=== PATIENT | male | born 1960 | race African-American/Black ===

== ENCOUNTER 2018-02-10 12:17 | Emergency (ER) | payer MEDICAID, MEDICARE ==
[~2018-02-10] VITALS: Ht 188 cm; Wt 104.0 kg
[~2018-02-10 12:17] MED LIST: AMLO10TA80 PO
[2018-02-10 12:30] VITALS: BP 144/77
== END 2018-02-10 15:47 | disposition home or self-care (01) ==
LOC: ER 12:17
DX: H60.91 Unspecified otitis externa, right ear (principal); F17.210 Nicotine dependence, cigarettes, uncomplicated
CPT/HCPCS: 99283